=== PATIENT | female | born 1940 | race Caucasian/White ===

== ENCOUNTER 2016-04-19 08:35 | Outpatient (CLI) | payer MEDICARE, OTHER | END 2016-04-19 08:36 | disposition home or self-care (01) | DX: E11.9 Type 2 diabetes mellitus without complications (principal); E55.9 Vitamin D deficiency, unspecified; Z79.899 Other long term (current) drug therapy ==

== ENCOUNTER 2016-05-11 09:50 | Outpatient (CLI) | payer MEDICARE, OTHER | END 2016-05-11 09:51 | disposition home or self-care (01) | DX: N30.90 Cystitis, unspecified without hematuria (principal) ==

== ENCOUNTER 2016-09-27 10:29 | Outpatient (CLI) | payer MEDICARE, OTHER ==
[2016-09-27 18:00] LABS: BASOPHILS % (AUTO) 0.7 %; EOSINOPHILS # (AUTO) 0.1 10^3/uL (0.0-0.7); EOSINOPHILS % (AUTO) 2.4 %; HCT - HEMATOCRIT 43.8 % (37.0-47.0); HGB - HEMOGLOBIN 14.7 g/dL (12.0-16.0); LYMPHOCYTES # (AUTO) 1.5 10^3/uL (1.5-3.5); MEAN CORPUSCULAR HEMOGLOBIN 30.3 pg (27.0-31.0); MEAN CORPUSCULAR HGB CONC 33.4 g/dL (32.0-36.0); MEAN CORPUSCULAR VOLUME 90.7 fL (81.0-99.0); MEAN PLATELET VOLUME 9.1 fL (7.9-10.8); MONOCYTES # (AUTO) 0.3 10^3/uL (0.0-1.0); MONOCYTES % (AUTO) 6.2 %; NEUTROPHILS # (AUTO) 2.5 10^3/uL (1.5-6.6); NEUTROPHILS % (AUTO) 56.7 %; NUCLEATED RED BLOOD CELLS AUTO 0.2 /100WBC; RED BLOOD COUNT 4.83 10^6/uL (4.20-5.40); RED CELL DISTRIBUTION WIDTH 13.3 % (12.0-15.0); UNCORRECTED WHITE BLOOD COUNT 4.4 x10^3/uL; WHITE BLOOD COUNT 4.4 x10^3/uL (4.8-10.8)
[2016-09-27 18:09] LABS: ALBUMIN/GLOBULIN RATIO 1.4 (1.0-2.2); BILIRUBIN,TOTAL 1.1 mg/dL (0.2-1.0); BUN - BLOOD UREA NITROGEN 13 mg/dL (6-20); CALCIUM 9.2 mg/dL (8.5-10.3); CARBON DIOXIDE - CO2 24 mmol/L (21-32); CHLORIDE 107 mmol/L (101-111); CHOL/HDL RATIO 3.8 (<4.4); CHOLESTEROL 196 mg/dL; CREATININE 0.9 mg/dL (0.4-1.0); GFR - MDRD 61 (>89); GLUCOSE 123 mg/dL (70-100); HDL CHOLESTEROL 52 mg/dL; LDL/HDL RATIO 2.3 (<4.4); SODIUM 138 mmol/L (135-145); TOTAL PROTEIN 6.8 g/dL (6.7-8.2); TRIGLYCERIDES 134 mg/dL; VLDL CHOLESTEROL 27 mg/dL
[2016-09-27 18:32] LABS: HEMOGLOBIN A1C 0.58 g/dL
== END 2016-09-27 10:30 | disposition home or self-care (01) ==
LOC: LAB.F 10:29
PROVIDERS: ATTEND Physician Assistant Medical
DX: E11.9 Type 2 diabetes mellitus without complications (principal); E55.9 Vitamin D deficiency, unspecified; E78.2 Mixed hyperlipidemia; I49.3 Ventricular premature depolarization; Z79.899 Other long term (current) drug therapy
CPT/HCPCS: 36415; 80053; 80061; 82306; 83036; 84443; 85025

== ENCOUNTER 2016-10-24 14:25 | Outpatient (CLI) | payer MEDICARE, OTHER | END 2016-10-24 14:26 | disposition home or self-care (01) | LOC: LAB.R 14:25 | PROVIDERS: ATTEND Physician Assistant Medical | DX: N30.00 Acute cystitis without hematuria (principal) | CPT/HCPCS: 87086 ==

== ENCOUNTER 2017-03-07 08:00 | Outpatient (CLI) | payer MEDICARE, OTHER | END 2017-03-07 08:01 | disposition home or self-care (01) | LOC: LAB.R 08:00 | PROVIDERS: ATTEND Physician Assistant Medical | DX: N30.00 Acute cystitis without hematuria (principal) | CPT/HCPCS: 87077; 87086 ==

== ENCOUNTER 2017-03-15 08:30 | Outpatient (CLI) | payer MEDICARE, OTHER ==
--- NOTE | 2017-03-16 17:42 | Mammography Report ---
DATE OF SERVICE: 03/15/2017 EXAM: DIGITAL BILATERAL SCREENING MAMMOGRAM: 03/15/2017 CLINICAL INDICATION: A 76-year-old with history of benign biopsy, for screening. COMPARISON: 02/2016, 02/2015, 11/2013, 11/2012, 10/2011, 11/2010, 10/2010, 2009. TECHNIQUE: Routine CC and MLO projections were obtained of the breasts. FINDINGS: The breasts demonstrate scattered fibroglandular densities bilaterally. Postbiopsy changes in the right breast are stable. Coarse and punctate, typically benign calcifications are present. No suspicious masses, clustered microcalcifications, or regions of architectural distortion are identified. IMPRESSION: BENIGN FINDINGS. RECOMMENDATIONS: Routine annual screening unless otherwise clinically indicated. BIRADS CATEGORY 2-BENIGN FINDINGS. STANDARD QUALIFYING STATEMENTS: 1. This examination was reviewed with the aid of Computer-Aided Detection (CAD) . 2. A negative or benign imaging report should not delay biopsy if clinically suspicious findings are present. Consider surgical consultation if warranted. More than 5% of cancers are not identified by imaging. 3. Dense breasts may obscure an underlying neoplasm. TD: 03/16/2017 16:24 ABIGAIL
== END 2017-03-15 08:31 | disposition home or self-care (01) ==
LOC: DI.S 08:30
PROVIDERS: ATTEND Physician Assistant Medical
DX: Z12.31 Encounter for screening mammogram for malignant neoplasm of breast (principal)
CPT/HCPCS: 77067

== ENCOUNTER 2017-03-27 11:38 | Outpatient (CLI) | payer MEDICARE, OTHER ==
[2017-03-27 13:55] LABS: HB2 TOTAL 16.6 g/dL; HEMOGLOBIN A1C 0.61 g/dL; HEMOGLOBIN A1C % 5.5 % (4.6-6.2)
== END 2017-03-27 11:39 | disposition home or self-care (01) ==
LOC: LAB.R 11:38
PROVIDERS: ATTEND Physician Assistant Medical
DX: E11.9 Type 2 diabetes mellitus without complications (principal)
CPT/HCPCS: 82947; 83036

== ENCOUNTER 2017-04-23 11:55 | Outpatient (CLI) | payer MEDICARE, OTHER | END 2017-04-23 11:56 | disposition home or self-care (01) | LOC: LAB.R 11:55 | PROVIDERS: ATTEND Physician Assistant Medical | DX: N30.00 Acute cystitis without hematuria (principal) | CPT/HCPCS: 87086 ==

== ENCOUNTER 2017-09-24 08:00 | Outpatient (CLI) | payer MEDICARE, OTHER | END 2017-09-24 08:01 | LOC: LAB.R 08:00 | PROVIDERS: ATTEND Physician Assistant Medical | DX: N30.00 Acute cystitis without hematuria (principal) | CPT/HCPCS: 87086; 87181 ==

== ENCOUNTER 2017-10-30 11:05 | Outpatient (CLI) | payer MEDICARE, OTHER ==
[2017-10-30 17:49] LABS: BASOPHILS % (AUTO) 0.7 %; EOSINOPHILS # (AUTO) 0.1 10^3/uL (0.0-0.7); EOSINOPHILS % (AUTO) 2.3 %; HGB - HEMOGLOBIN 14.9 g/dL (12.0-16.0); LYMPHOCYTES # (AUTO) 1.3 10^3/uL (1.5-3.5); LYMPHOCYTES % (AUTO) 29.7 %; MEAN CORPUSCULAR HEMOGLOBIN 30.1 pg (27.0-31.0); MEAN CORPUSCULAR HGB CONC 33.7 g/dL (32.0-36.0); MEAN CORPUSCULAR VOLUME 89.3 fL (81.0-99.0); MEAN PLATELET VOLUME 9.3 fL (7.9-10.8); MONOCYTES # (AUTO) 0.3 10^3/uL (0.0-1.0); MONOCYTES % (AUTO) 6.2 %; NEUTROPHILS # (AUTO) 2.7 10^3/uL (1.5-6.6); NEUTROPHILS % (AUTO) 61.1 %; PLT - PLATELET COUNT 191 10^3/uL (130-450); RED BLOOD COUNT 4.93 10^6/uL (4.20-5.40); RED CELL DISTRIBUTION WIDTH 13.6 % (12.0-15.0); WHITE BLOOD COUNT 4.5 x10^3/uL (4.8-10.8)
[2017-10-30 18:17] LABS: ALBUMIN 3.7 g/dL (3.2-5.5); ALBUMIN/GLOBULIN RATIO 1.2 (1.0-2.2); ALKALINE PHOSPHATASE 66 IU/L (42-121); ALT ALANINE AMINOTRANSFERASE 14 IU/L (10-60); AST ASPARTATE AMINOTRANSFERASE 20 IU/L (10-42); BILIRUBIN,TOTAL 1.5 mg/dL (0.2-1.0); BUN - BLOOD UREA NITROGEN 12 mg/dL (6-20); CALCIUM 9.1 mg/dL (8.5-10.3); CARBON DIOXIDE - CO2 24 mmol/L (21-32); CHLORIDE 107 mmol/L (101-111); CHOL/HDL RATIO 3.7 (<4.4); CHOLESTEROL 215 mg/dL; CREATININE 0.8 mg/dL (0.4-1.0); GFR - MDRD 70 (>89); GLUCOSE 118 mg/dL (70-100); HDL CHOLESTEROL 58 mg/dL; LDL CHOLESTEROL,CALCULATED 127 mg/dL; LDL/HDL RATIO 2.2 (<4.4); SODIUM 138 mmol/L (135-145); TOTAL PROTEIN 6.9 g/dL (6.7-8.2); VLDL CHOLESTEROL 30 mg/dL
[2017-10-30 18:45] LABS: HB2 TOTAL 15.8 g/dL; HEMOGLOBIN A1C 0.66 g/dL
== END 2017-10-30 11:06 | disposition home or self-care (01) ==
LOC: LAB.F 11:05
PROVIDERS: ATTEND Physician Assistant Medical
DX: Z79.899 Other long term (current) drug therapy (principal); E55.9 Vitamin D deficiency, unspecified; E78.2 Mixed hyperlipidemia; E11.9 Type 2 diabetes mellitus without complications; I49.3 Ventricular premature depolarization; E66.3 Overweight
CPT/HCPCS: 36415; 80053; 80061; 82306; 83036; 83721; 84443; 85025

== ENCOUNTER 2018-04-09 08:15 | Outpatient (CLI) | payer MEDICARE, OTHER ==
--- NOTE | 2018-04-10 12:58 | Mammography Report ---
Reason: MAMMOGRAPHIC SCREENING FOR BREAST CANCER Procedure Date: 04/09/2018 Accession Number: [id number] / [id number] Procedure: [facility] - Screening Mammo w/Rosendo CPT Code: FULL RESULT: EXAM: Screening Mammo w/Rosendo DATE: 04/09/2018 9:06 AM CLINICAL HISTORY: History of benign biopsy for routine screening TECHNIQUE: Bilateral CC and MLO views were obtained. COMPARISON: 03/15/2017, 03/06/2016, 03/17/2015, 12/09/2013, and the 12/05/2012 FINDINGS: There are scattered fibroglandular densities. There has been no significant interval change on the left. No suspicious masses, clustered microcalcifications, or regions of architectural distortion are identified. Benign appearing calcifications are stable. On the right there is an area of architectural distortion in the 12:00 position approximately 4 cm from the nipple. This may represent postbiopsy architectural distortion given the patient's clinical history but it appears more prominent than on preceding studies. Otherwise no significant new findings right breast. IMPRESSION: Negative left breast. Needs additional evaluation of the right breast by spot compression and true lateral views and possible ultrasound. RECOMMENDATION: Additional imaging right breast. BIRADS CATEGORY 0: Needs additional evaluation STANDARD QUALIFYING STATEMENTS: 1. This examination was not reviewed with the aid of Computer-Aided Detection (CAD). 2. A negative or benign imaging report should not delay biopsy if clinically suspicious findings are present. Consider surgical consultation if warrented. More than 5% of cancers are not identified by imaging. 3. Dense breasts may obscure an underlying neoplasm. 4. This examination was reviewed with the aid of 3D breast imaging (tomosynthesis).
== END 2018-04-09 08:16 | disposition home or self-care (01) ==
LOC: DI 08:15
PROVIDERS: ATTEND Physician Assistant Medical
DX: Z12.31 Encounter for screening mammogram for malignant neoplasm of breast (principal)
CPT/HCPCS: 77063; 77067

== ENCOUNTER 2018-04-09 08:19 | Outpatient (CLI) | payer MEDICARE, OTHER ==
--- NOTE | 2018-04-09 10:31 | DEXA Report ---
Reason: POSTMENOPAUSAL Procedure Date: 04/09/2018 Accession Number: [id number] / [id number] Procedure: DEX - Dexa Spine and/or Hip CPT Code: FULL RESULT: EXAM: Dexa Spine and/or Hip DATE: 04/09/2018 9:08 AM CLINICAL HISTORY: POSTMENOPAUSAL TECHNIQUE: Dual energy x-ray absorptiometry (DXA) was performed on a ttwick System. Regions measured are the AP Spine, femoral neck, and if needed forearm. COMPARISON: 05/10/2011. In accordance with the International Society for Clinical Densitometry (ISCD) guidelines, data from previous exams may be reanalyzed using current recommendations and techniques. This is done to allow a more accurate basis for comparison with the current study. FINDINGS: The data for the lumbar spine is as follows: BMD (g/cm/cm) T-SCORE Z-SCORE REGION L1 1.058 -0.6 0.6 L2 1.129 -0.6 0.6 L3 1.236 0.3 1.5 L4 1.295 0.8 2.0 TOTAL 1.191 0.1 1.3 NOTE: All evaluable vertebrae are used for classification The data for the hip is as follows: BMD (g/cm/cm) T-SCORE Z-SCORE REGION Neck 0.842 -1.4 0.2 TOTAL 0.864 -1.1 0.3 NOTE: The femoral neck or total proximal femur, whichever is lowest, is used for classification. IMPRESSION: THE WHO CLASSIFICATION BASED ON THE INTERNATIONAL REFERENCE STANDARD IS OSTEOPENIA. THE FRACTURE RISK IS INCREASED. RECOMMENDATION: Patients with diagnosis of osteoporosis or osteopenia should have regular bone mineral density assessment. For those eligible for Medicare, routine testing is allowed once every 2 years. Testing frequency can be increased for patients who have rapidly progressing disease or for those who are receiving medical therapy to restore bone mass. COMMENT: World Health Organization (WHO) definitions for osteoporosis and osteopenia: NORMAL BMD: T-score at -1.0 or higher, fracture risk is low OSTEOPENIA BMD: T-score between -1.0 and -2.5, fracture risk is increased. OSTEOPOROSIS BMD: T-score at -2.5 or lower, fracture risk is high. National Osteoporosis Foundation recommends: 1. Obtain adequate dietary calcium (at least 1200 mg per day) and vitamin D (400-800 international units per day). 2. Participate, as appropriate, in regular weightbearing and muscle-strengthening exercise. 3. Avoid tobacco use and reduce alcohol and caffeine intake. 4. For more detailed information see the website at www.NOF.org.
== END 2018-04-09 08:20 | disposition home or self-care (01) ==
LOC: DI 08:19
PROVIDERS: ATTEND Physician Assistant Medical
DX: M85.89 Other specified disorders of bone density and structure, multiple sites (principal); Z78.0 Asymptomatic menopausal state
CPT/HCPCS: 77080

== ENCOUNTER 2018-04-10 10:30 | Outpatient (CLI) | payer MEDICARE, OTHER ==
[2018-04-10 18:22] LABS: HB2 TOTAL 15.7 g/dL; HEMOGLOBIN A1C 0.79 g/dL; HEMOGLOBIN A1C % 6.8 % (4.6-6.2)
[2018-04-10 18:27] LABS: ALBUMIN/GLOBULIN RATIO 1.3 (1.0-2.2); BILIRUBIN,TOTAL 1.2 mg/dL (0.2-1.0); CALCIUM 8.9 mg/dL (8.5-10.3); CREATININE 0.7 mg/dL (0.4-1.0)
== END 2018-04-10 10:31 | disposition home or self-care (01) ==
LOC: LAB.F 10:30
PROVIDERS: ATTEND Physician Assistant Medical
DX: E55.9 Vitamin D deficiency, unspecified (principal); Z79.899 Other long term (current) drug therapy; E11.9 Type 2 diabetes mellitus without complications
CPT/HCPCS: 36415; 80053; 82306; 83036

== ENCOUNTER 2018-04-19 08:43 | Outpatient (CLI) | payer MEDICARE, OTHER ==
--- NOTE | 2018-04-19 09:58 | Mammography Report ---
Reason: ABN MAMMO - RT SPEC VIEWS Procedure Date: 04/19/2018 Accession Number: [id number] / [id number] Procedure: [facility] - Diag Special Views Dig RT CPT Code: FULL RESULT: EXAM: Diag Special Views Dig RT DATE: 04/19/2018 9:41 AM CLINICAL HISTORY: Diagnostic mammogram. Follow-up of an identified architectural distortion of the right breast. TECHNIQUE: Right spot CC and spot magnified MLO views as well as a right ML views were obtained. COMPARISON: 04/09/2018 through 12/05/2012. FINDINGS: The right breast demonstrates scattered fibroglandular density. The previously seen interval increase in architectural distortion in an area of presumed previous biopsy of the right breast in the 12:00 position is demonstrated to be the result of tissue overlap which resolves with variation in technique and spot compression. No suspicious calcification, mass or architectural distortion is identified. IMPRESSION: Benign findings RECOMMENDATION: Recommend routine annual Screening mammography unless otherwise clinically indicated. BIRADS CATEGORY 2: Benign findings STANDARD QUALIFYING STATEMENTS: 1. This examination was not reviewed with the aid of Computer-Aided Detection (CAD). 2. A negative or benign imaging report should not delay biopsy if clinically suspicious findings are present. Consider surgical consultation if warrented. More than 5% of cancers are not identified by imaging. 3. Dense breasts may obscure an underlying neoplasm. 4. This examination was reviewed with the aid of 3D imaging (tomography).
== END 2018-04-19 08:44 | disposition home or self-care (01) ==
LOC: DI 08:43
PROVIDERS: ATTEND Physician Assistant Medical
DX: R92.8 Other abnormal and inconclusive findings on diagnostic imaging of breast (principal)

== ENCOUNTER 2018-07-25 14:24 | Emergency (ER) | payer MEDICARE, OTHER ==
[2018-07-25] MEDS ORDERED: IBUPROFEN 800 MG TABLET PO STA (15:18)
--- NOTE | 2018-07-25 15:21 | ED Physician Documentation ---
PD HPI Fall - Stated complaint Stated Complaint: GLF - Chief complaint Chief Complaint: Trauma Ch/Bk - History obtained from History obtained from: Patient, Family - History of Present Illness Mechanism of injury: Slipped Fall distance: Standing position Where injury occurred: Street Timing - onset: How many hours ago (2) Injury(ies) location: Chest (R chest and R shoulder) Pain level max: 7 Pain level now: 5 Quality of pain: Pain, Throbbing, Aching Associated symptoms: No: LOC, AMS, Amnesia, Seizures, Ear drainage, Nasal drainage, Neck pain, Weakness, Paresthesias, Dyspnea, Nausea / vomiting, Hem atemesis, Abdominal distension Symptoms improve with: Rest Worsens with: Movement, Palpation Contributing factors: No: Anticoagulated - Additional information Additional information: td UTD Review of Systems Constitutional: denies: Fever Respiratory: denies: Cough GI: denies: Nausea, Vomiting, Diarrhea Skin: denies: Rash Musculoskeletal: denies: Neck pain, Back pain Neurologic: denies: Focal weakness, Numbness, Confused, Altered mental status, Headache, Head injury, LOC PD PAST MEDICAL HISTORY - Past Medical History Past Medical History: No Cardiovascular: None Respiratory: None Neuro: None Endocrine/Autoimmune: Type 2 diabetes GI: None MANAGER PUBLISHING: None : None HEENT: None Psych: None Musculoskeletal: Osteoarthritis Derm: None - Past Surgical History Past Surgical History: Yes Ortho: Hip replacement /MANAGER PUBLISHING: Hysterectomy HEENT: Other - Allergies Allergies/Adverse Reactions: Allergies Allergy/AdvReac Type Severity Reaction Status Date / Time meperidine HCl * Allergy Unknown Verified 07/25/18 14:39 [From Demerol] - Social History Does the pt smoke?: No Smoking Status: Never smoker Does the pt drink ETOH?: Yes Does the pt have substance abuse?: No - Immunizations Immunizations are current?: Yes - POLST Patient has POLST: No PD ED PE NORMAL - Vitals Vital signs reviewed: Yes - General General: Alert and oriented X 3, No acute distress - HEENT HEENT: Atraumatic, PERRL, Moist mucous membranes - Neck Neck: Supple, no meningeal sign, No bony TTP - Cardiac Cardiac: RRR, Strong equal pulses - Respiratory Respiratory: No respiratory distress, Clear bilaterally - Abdomen Abdomen: Soft, Non tender, Non distended - Back Back: No spinal TTP - Derm Derm: Warm and dry, Other (abrasion R knee) - Extremities Extremities: Other (normal ankle and knee exam B) - Neuro Neuro: Alert and oriented X 3 - Psych Psych: Normal mood, Normal affect - Free text exam Free text exam: TTP R shoulder, no deformity. FROM. NVI. TTP mid axillary line ribs 5-8 no crepitus. no ecchymosis. Results - Vitals Vitals: Vital Signs - 24 hr 07/25/18 07/25/18 07/25/18 14:35 16:32 17:25 Temperature 36.2 C L 35.9 C L 36.2 C L Heart Rate 64 65 66 Respiratory 18 18 18 Rate Blood Pressure 157/75 H 150/77 H 148/78 H O2 Saturation 98 96 96 Oxygen O2 Source Room air - Rads (name of study) R ribs xray Radiology: Prelim report reviewed, EMP read contemporaneously, See rad report (no acute fractures) R shoulder Radiology: Prelim report reviewed, EMP read contemporaneously, See rad report (no acute abnormality) PD MEDICAL DECISION MAKING - ED course Complexity details: reviewed results, re-evaluated patient, considered differential, d/w patient, d/w family ED course: 78-year-old female that is post ground-level fall. No acute findings on x-ray. No evidence of cervical spine, thoracic spine or lumbar spine injury. No head injury. No evidence of skull fracture or intracranial hemorrhage. Ambulating well. Tetanus is up-to-date. Patient counseled regarding signs and symptoms for which I believe and urgent re-evaluation would be necessary. Patient with good understanding of and agreement to plan and is comfortable going home at this time This document was made in part using voice recognition software. While efforts are made to proofread this document, sound alike and grammatical errors may occur. Departure - Departure Disposition: 01 Home, Self Care Clinical Impression: Abrasion Contusion of shoulder, right Qualifiers: Encounter type: initial encounter Qualified Code(s): S40.011A - Contusion of right shoulder, initial encounter Contusion of rib on right side Qualifiers: Encounter type: initial encounter Qualified Code(s): S20.211A - Contusion of right front wall of thorax, initial encounter Condition: Good Instructions: ED Contusion Soft Tissue, ED Contusion Rib Follow-Up: Juan Carlos Alberto MD [Primary Care Provider] - Within 1 week Comments: There are no fractures on x-ray today. Return if you worsen. Follow-up with your doctor for further evaluation and care. You can use Motrin or Tylenol as needed for pain. Discharge Date/Time: 07/25/18 17:29
--- NOTE | 2018-07-25 16:43 | XRAY Report ---
Reason: fall, R shoulder pain Procedure Date: 07/25/2018 Accession Number: [id number] / [id number] Procedure: XR - Shoulder 3 View RT CPT Code: FULL RESULT: EXAM: RIGHT SHOULDER RADIOGRAPHY EXAM DATE: 07/25/2018 04:05 PM. CLINICAL HISTORY: Fall with pain in right shoulder. COMPARISON: None. TECHNIQUE: 3 views. FINDINGS: Bones: Normal. No fracture or bone lesion. Joints: Mild degenerative changes in the acromioclavicular joint. Soft tissues: The visualized hemithorax is unremarkable. No soft tissue swelling. IMPRESSION: 1. No fracture. 2. Mild degenerative changes in the acromioclavicular joint. RADIA
--- NOTE | 2018-07-25 16:45 | XRAY Report ---
Reason: fall, R rib pain Procedure Date: 07/25/2018 Accession Number: [id number] / [id number] Procedure: XR - Ribs w/PA Chest RT CPT Code: FULL RESULT: EXAM: RIGHT RIB RADIOGRAPHY EXAM DATE: 07/25/2018 04:05 PM. CLINICAL HISTORY: Right sided and right shoulder pain status post fall COMPARISON: None. TECHNIQUE: 1 view of the chest and 2 views of the ribs. FINDINGS: Bones: Normal. No fracture or bone lesion. Lungs: No focal opacities. No pneumothorax. No pleural effusions. Mediastinum: Heart and mediastinal contours are unremarkable. Other: Mild degenerative changes in the right acromioclavicular joint and moderate to severe degenerative changes in the left acromioclavicular joint. IMPRESSION: 1. No focal consolidation. 2. No rib fractures identified. 3. Mild degenerative changes in the right acromioclavicular joint and moderate to severe degenerative changes in the left acromioclavicular joint. RADIA
[2018-07-25 17:26] VITALS: BP 148/78
== END 2018-07-25 17:29 | disposition home or self-care (01) ==
LOC: ED 14:24
DX: S80.211A Abrasion, right knee, initial encounter (principal); S40.011A Contusion of right shoulder, initial encounter; S20.211A Contusion of right front wall of thorax, initial encounter; W01.0XXA Fall on same level from slipping, tripping and stumbling without subsequent striking against object, initial encounter; Y92.410 Unspecified street and highway as the place of occurrence of the external cause; E11.9 Type 2 diabetes mellitus without complications
CPT/HCPCS: 71101; 73030; 99283; 99284; A9270

== ENCOUNTER 2018-09-03 13:43 | Outpatient (CLI) | payer MEDICARE, OTHER ==
--- NOTE | 2018-09-03 14:14 | XRAY Report ---
Reason: HIP JOINT PAIN,RIGHT Procedure Date: 09/03/2018 Accession Number: [id number] / [id number] Procedure: XR - Hip w/Pelvis 2-3V RT CPT Code: FULL RESULT: EXAM: RIGHT HIP RADIOGRAPHY EXAM DATE: 09/03/2018 01:50 PM. CLINICAL HISTORY: Right hip pain. Recent fall. COMPARISON: XR HIP UNI LAT MIN 2 VIEW 02/21/2012 5:12 PM. TECHNIQUE: 2 views. FINDINGS: Bones: Negative for fracture Joints: Mild to moderate right hip joint osteoarthritis. Partial visualization of a left hip arthroplasty. Unremarkable sacroiliac joints. Soft Tissues: Normal. No soft tissue swelling. IMPRESSION: Negative for fracture. RADIA
== END 2018-09-03 13:44 | disposition home or self-care (01) ==
LOC: DI 13:43
PROVIDERS: ATTEND Nurse Practitioner
DX: M16.11 Unilateral primary osteoarthritis, right hip (principal)

== ENCOUNTER 2018-10-10 08:00 | Outpatient (CLI) | payer MEDICARE, OTHER | END 2018-10-10 23:59 | disposition home or self-care (01) | LOC: LAB.R 08:00 | PROVIDERS: ATTEND Family Medicine | DX: Z87.440 Personal history of urinary (tract) infections (principal); N39.0 Urinary tract infection, site not specified | CPT/HCPCS: 87086 ==

== ENCOUNTER 2018-12-05 11:00 | Outpatient (CLI) | payer MEDICARE, OTHER ==
[2018-12-05 17:12] LABS: BASOPHILS % (AUTO) 0.6 %; EOSINOPHILS # (AUTO) 0.1 10^3/uL (0.0-0.7); EOSINOPHILS % (AUTO) 2.5 %; HGB - HEMOGLOBIN 14.9 g/dL (12.0-16.0); LYMPHOCYTES # (AUTO) 1.3 10^3/uL (1.5-3.5); LYMPHOCYTES % (AUTO) 36.9 %; MEAN CORPUSCULAR HEMOGLOBIN 29.5 pg (27.0-31.0); MEAN CORPUSCULAR HGB CONC 32.8 g/dL (32.0-36.0); MEAN CORPUSCULAR VOLUME 89.9 fL (81.0-99.0); MEAN PLATELET VOLUME 11.4 fL (7.9-10.8); MONOCYTES # (AUTO) 0.3 10^3/uL (0.0-1.0); MONOCYTES % (AUTO) 8.1 %; NEUTROPHILS # (AUTO) 1.9 10^3/uL (1.5-6.6); NEUTROPHILS % (AUTO) 51.9 %; PLT - PLATELET COUNT 199 10^3/uL (130-450); RED BLOOD COUNT 5.05 10^6/uL (4.20-5.40); RED CELL DISTRIBUTION WIDTH 13.4 % (12.0-15.0); WHITE BLOOD COUNT 3.6 x10^3/uL (4.8-10.8)
[2018-12-05 17:40] LABS: HB2 TOTAL 15.8 g/dL; HEMOGLOBIN A1C 0.62 g/dL; HEMOGLOBIN A1C % 5.7 % (4.6-6.2)
[2018-12-05 17:50] LABS: ALBUMIN 4.3 g/dL (3.2-5.5); ALBUMIN/GLOBULIN RATIO 1.8 (1.0-2.2); ALKALINE PHOSPHATASE 57 IU/L (42-121); ALT ALANINE AMINOTRANSFERASE 23 IU/L (10-60); AST ASPARTATE AMINOTRANSFERASE 22 IU/L (10-42); BILIRUBIN,TOTAL 1.3 mg/dL (0.2-1.0); BUN - BLOOD UREA NITROGEN 15 mg/dL (6-20); CALCIUM 9.1 mg/dL (8.5-10.3); CARBON DIOXIDE - CO2 25 mmol/L (21-32); CHLORIDE 108 mmol/L (101-111); CHOL/HDL RATIO 4.6 (<4.4); CHOLESTEROL 214 mg/dL; CREATININE 0.8 mg/dL (0.4-1.0); GFR - MDRD 69 (>89); GLUCOSE 110 mg/dL (70-100); HDL CHOLESTEROL 47 mg/dL; LDL CHOLESTEROL,CALCULATED 147 mg/dL; LDL/HDL RATIO 3.1 (<4.4); SODIUM 140 mmol/L (135-145); TOTAL PROTEIN 6.7 g/dL (6.7-8.2); VLDL CHOLESTEROL 20 mg/dL
== END 2018-12-05 11:01 | disposition home or self-care (01) ==
LOC: LAB.S 11:00
PROVIDERS: ATTEND Nurse Practitioner
DX: R03.0 Elevated blood-pressure reading, without diagnosis of hypertension (principal); N18.9 Chronic kidney disease, unspecified; E55.9 Vitamin D deficiency, unspecified; E78.2 Mixed hyperlipidemia; E11.9 Type 2 diabetes mellitus without complications; Z79.899 Other long term (current) drug therapy
CPT/HCPCS: 36415; 80053; 80061; 82306; 83036; 83721; 84443; 85025

== ENCOUNTER 2019-09-20 09:59 | Outpatient (CLI) | payer MEDICARE, OTHER | END 2019-09-20 23:59 | disposition home or self-care (01) | LOC: LAB.R 09:59 | PROVIDERS: ATTEND Physician Assistant | DX: N30.00 Acute cystitis without hematuria (principal); R30.0 Dysuria | CPT/HCPCS: 87086 ==

== ENCOUNTER 2020-02-11 12:29 | Outpatient (CLI) | payer MEDICARE, OTHER ==
--- NOTE | 2020-02-11 14:15 | XRAY Report ---
PROCEDURE: Shoulder 3 View LT INDICATIONS: LEFT SHOULDER PAIN TECHNIQUE: 3 views of the shoulder were acquired. COMPARISON: None. FINDINGS: Bones: No fractures or dislocations. No suspicious bony lesions. Visualized ribs appear intact. S evere acromioclavicular degenerative narrowing. Soft tissues: No suspicious soft tissue calcifications. Prominent calcific tendinitis. IMPRESSION: Acromial clavicular degenerative narrowing as well as calcific tendinitis. Reviewed by: Jie Haley MD on 02/11/2020 2:14 PM PST Approved by: Jie Haley MD on 02/11/2020 2:14 PM PST Station ID: [id number]
== END 2020-02-11 12:30 | disposition home or self-care (01) ==
LOC: DI.S 12:29
PROVIDERS: ATTEND Family Medicine
DX: M19.012 Primary osteoarthritis, left shoulder (principal)

== ENCOUNTER 2020-02-13 07:03 | Outpatient (CLI) | payer MEDICARE, OTHER ==
[2020-02-13 15:10] LABS: BASOPHILS % (AUTO) 0.5 %; EOSINOPHILS # (AUTO) 0.1 10^3/uL (0.0-0.7); EOSINOPHILS % (AUTO) 1.6 %; HGB - HEMOGLOBIN 14.9 g/dL (12.0-16.0); LYMPHOCYTES # (AUTO) 1.5 10^3/uL (1.5-3.5); LYMPHOCYTES % (AUTO) 35.5 %; MEAN CORPUSCULAR HEMOGLOBIN 30.8 pg (27.0-31.0); MEAN CORPUSCULAR HGB CONC 33.4 g/dL (32.0-36.0); MEAN CORPUSCULAR VOLUME 92.3 fL (81.0-99.0); MEAN PLATELET VOLUME 10.9 fL (7.9-10.8); MONOCYTES # (AUTO) 0.3 10^3/uL (0.0-1.0); MONOCYTES % (AUTO) 6.8 %; NEUTROPHILS # (AUTO) 2.4 10^3/uL (1.5-6.6); NEUTROPHILS % (AUTO) 55.6 %; PLT - PLATELET COUNT 222 10^3/uL (130-450); RED BLOOD COUNT 4.83 10^6/uL (4.20-5.40); RED CELL DISTRIBUTION WIDTH 12.6 % (12.0-15.0); WHITE BLOOD COUNT 4.3 x10^3/uL (4.8-10.8)
[2020-02-13 15:24] LABS: ALBUMIN 4.1 g/dL (3.2-5.5); ALBUMIN/GLOBULIN RATIO 1.5 (1.0-2.2); ALKALINE PHOSPHATASE 65 IU/L (42-121); ALT ALANINE AMINOTRANSFERASE 14 IU/L (10-60); AST ASPARTATE AMINOTRANSFERASE 17 IU/L (10-42); BILIRUBIN,TOTAL 1.5 mg/dL (0.2-1.0); BUN - BLOOD UREA NITROGEN 14 mg/dL (6-20); CALCIUM 9.8 mg/dL (8.5-10.3); CARBON DIOXIDE - CO2 24 mmol/L (21-32); CHLORIDE 105 mmol/L (101-111); CHOL/HDL RATIO 3.4 (<4.4); CHOLESTEROL 208 mg/dL; CREATININE 0.7 mg/dL (0.4-1.0); GLUCOSE 114 mg/dL (70-100); HDL CHOLESTEROL 62 mg/dL; LDL CHOLESTEROL,CALCULATED 119 mg/dL; LDL/HDL RATIO 1.9 (<4.4); SODIUM 143 mmol/L (135-145); TOTAL PROTEIN 6.8 g/dL (6.7-8.2); VLDL CHOLESTEROL 27 mg/dL
[2020-02-13 20:14] LABS: HEMOGLOBIN A1c% 5.2 % (4.27-6.07)
== END 2020-02-13 07:04 | disposition home or self-care (01) ==
LOC: LAB.S 07:03
PROVIDERS: ATTEND Family Medicine
DX: Z00.00 Encounter for general adult medical examination without abnormal findings (principal); E55.9 Vitamin D deficiency, unspecified; N18.9 Chronic kidney disease, unspecified; R03.0 Elevated blood-pressure reading, without diagnosis of hypertension; E78.2 Mixed hyperlipidemia; E11.22 Type 2 diabetes mellitus with diabetic chronic kidney disease
CPT/HCPCS: 36415; 80053; 80061; 82306; 83036; 83721; 84443; 85025

== ENCOUNTER 2020-09-02 16:11 | Outpatient (CLI) | payer MEDICARE, OTHER | END 2020-09-02 16:12 | disposition home or self-care (01) | LOC: COV 16:11 | PROVIDERS: ATTEND Family Medicine | DX: R50.9 Fever, unspecified (principal); R05 Cough; M79.10 Myalgia, unspecified site; R53.83 Other fatigue; R07.0 Pain in throat; R43.8 Other disturbances of smell and taste; J34.89 Other specified disorders of nose and nasal sinuses; Z20.822 Contact with and (suspected) exposure to COVID-19 ==

== ENCOUNTER 2020-12-15 08:00 | Outpatient (CLI) | payer MEDICARE, OTHER | END 2020-12-15 23:59 | disposition home or self-care (01) | LOC: LAB.S 08:00 | PROVIDERS: ATTEND Physician Assistant Medical | DX: R30.0 Dysuria (principal) | CPT/HCPCS: 87086; 87181 ==

== ENCOUNTER 2021-04-26 10:45 | Outpatient (CLI) | payer MEDICARE, OTHER ==
--- NOTE | 2021-04-27 10:17 | Mammography Report ---
BILATERAL DIGITAL SCREENING MAMMOGRAM 3D/2D WITH EXAGGERATED CC: 04/26/2021 CLINICAL: Family history of breast cancer. Routine screening. Comparison is made to exams dated: 04/19/2018 mammogram, 04/09/2018 mammogram, and 03/15/2017 mammogra m - [facility]. There are scattered fibroglandular elements in both breasts. No significant masses, calcifications, or other findings are seen in either breast. There has been no significant interval change. IMPRESSION: NEGATIVE There is no mammographic evidence of malignancy. A 1 year screening mammogram is recommended. This exam was interpreted at Station ID: [id number]. NOTE: For mammograms, a report in lay terms will be sent to the patient. Approximately 15% of breast malignancies will not be visualized mammographically. In the management of a palpable breast mass, a negative mammogram must not discourage biopsy of a clinically suspicious lesion. Electronically Signed By: Ronak Dejesus M.D. ar/penrad:04/26/2021 12:57:46 ACR BI-RADS Category 1: Negative 3341F PARENCHYMAL PATTERN: (A) - The breast(s) demonstrate(s) scattered fibroglandular densities. BI-RADS CATEGORY: (1) - 1 RECOMMENDATION: (ANNUAL) - Recommend routine annual screening mammography. [id number] 1 year screening LATERALITY: (B)
== END 2021-04-26 10:46 | disposition home or self-care (01) ==
LOC: DI.S 10:45
DX: Z12.31 Encounter for screening mammogram for malignant neoplasm of breast (principal); Z80.3 Family history of malignant neoplasm of breast

== ENCOUNTER 2021-06-03 08:00 | Outpatient (CLI) | payer MEDICARE, OTHER ==
[2021-06-03 20:00] LABS: BILIRUBIN,URINE NEGATIVE (NEGATIVE); GLUCOSE, URINE (UA) NEGATIVE (NEGATIVE); KETONES,URINE (UA) NEGATIVE (NEGATIVE); LEUKOCYTE ESTERASE, URINE SMALL (NEGATIVE); NITRITE,URINE NEGATIVE (NEGATIVE); OCCULT BLOOD,URINE LARGE (NEGATIVE); PROTEIN,URINE NEGATIVE (NEGATIVE); UROBILINOGEN,URINE 0.2 (NORMAL) E.U./dL (NORMAL)
[2021-06-03 20:03] LABS: CLARITY,URINE HAZY (CLEAR)
[2021-06-03 20:15] LABS: AMORPHOUS SEDIMENT,UR Few /LPF; BACTERIA,URINE Rare /HPF (None Seen); SQUAMOUS EPITHELIAL CELL,UR RARE Squamous (<= Few); WBC,URINE >25 /HPF (0-5)
== END 2021-06-03 23:59 | disposition home or self-care (01) ==
LOC: LAB.S 08:00
PROVIDERS: ATTEND Registered Nurse
DX: N39.0 Urinary tract infection, site not specified (principal)
CPT/HCPCS: 81001; 87086

== ENCOUNTER 2021-06-17 08:00 | Outpatient (CLI) | payer MEDICARE, OTHER ==
[2021-06-17 14:43] LABS: GLUCOSE, URINE (UA) NEGATIVE (NEGATIVE); KETONES,URINE (UA) NEGATIVE (NEGATIVE); LEUKOCYTE ESTERASE, URINE MODERATE (NEGATIVE); NITRITE,URINE POSITIVE (NEGATIVE); OCCULT BLOOD,URINE LARGE (NEGATIVE); PH,URINE 5.5 PH (5.0-7.5); PROTEIN,URINE 100 mg/dL (NEGATIVE); UROBILINOGEN,URINE 0.2 (NORMAL) E.U./dL (NORMAL)
[2021-06-17 14:50] LABS: BILIRUBIN,URINE NEGATIVE (NEGATIVE); CLARITY,URINE SL. CLOUDY (CLEAR); ICTOTEST,URINE NEGATIVE
[2021-06-17 15:10] LABS: RBC,URINE TNTC /HPF (0-5); SQUAMOUS EPITHELIAL CELL,UR RARE Squamous (<= Few); WBC,URINE >25 /HPF (0-5)
[2021-06-17 15:11] LABS: BACTERIA,URINE Rare /HPF (None Seen)
== END 2021-06-17 23:59 | disposition home or self-care (01) ==
LOC: LAB.R 08:00
PROVIDERS: ATTEND Registered Nurse
DX: N39.0 Urinary tract infection, site not specified (principal)
CPT/HCPCS: 81001; 87086; 87181

== ENCOUNTER 2021-10-18 15:17 | Outpatient (CLI) | payer MEDICARE, OTHER ==
--- NOTE | 2021-10-19 09:25 | MRI Report ---
PROCEDURE: Lumbar Spine W/O INDICATIONS: LUMBAR RADICULOPATHY TECHNIQUE: Noncontrast sagittal T1 spin echo and T2 fast echo, sagittal STIR, axial T1 and T2 fast spin echo thr ough the lumbar spine. In cases with scoliosis, additional coronal T2 fast spin echo may be performe d. COMPARISON: None. FINDINGS: Image quality: Excellent. Alignment and Curvature: There is a transitional lumbosacral vertebral body which would be labeled as L5. Trace retrolisthesis of L1 on L2, trace anterolisthesis of L3 on L4, 7 mm anterolisthesis of L4 on L5. Bone Marrow: Marrow is of normal overall signal. No acute vertebral body compression fractures. Spinal Cord: Conus medullaris terminates at the L1 level. Visualized cord demonstrates normal signa l and size. Paraspinous Soft Tissues: No paravertebral masses. T11-T12: Disc bulge. No canal stenosis or foraminal stenosis. T12-L1: No canal stenosis or foraminal stenosis. L1-L2: Diffuse disc bulge. Facet hypertrophy. Epidural lipomatosis. Mild canal stenosis. Mild to m oderate right foraminal stenosis and moderate left foraminal stenosis. L2-L3: Disc bulge. Prominent bilateral facet hypertrophy. A anteromedially directed facet joint cy st off the left facet contributes to severe central canal stenosis. Stenosis is worse to the left mid line. There is moderate bilateral foraminal narrowing with flattening deformity on the exiting bilateral L2 nerve roots. L3-L4: Disc bulge. Quite prominent facet and ligament hypertrophy. Severe central canal and bilater al lateral recess stenosis. Bilateral foraminal disc bulges and facet hypertrophy results in bilatera l moderate to severe foraminal narrowing with impingement on the bilateral exiting L3 nerve roots. L4-L5: Anterolisthesis of L4 on L5. Marked facet hypertrophy. Severe central canal stenosis and mar ked bilateral lateral recess stenosis. Moderate to severe right foraminal narrowing with flattening d eformity on the exiting right L4 nerve root. Moderate left foraminal narrowing. L5-S1: Disc bulge. Prominent bilateral facet hypertrophy. No canal stenosis. Foramina are patent. IMPRESSION: 1. There is a transitional lumbosacral vertebral body, which is labeled as L5 for the purposes of thi s dictation. If surgery is planned, careful correlation for correct surgical level is recommended. 2. There is extensive degenerative change with multilevel facet arthropathy. 3. Canal stenosis is severe at L2-L3, L3-L4, and L4-L5, as described above. 4. Multilevel foraminal narrowing as described above. At L3-L4, there is impingement on the bilateral exiting L3 nerve roots. Reviewed by: Sergio Nj MD on 10/19/2021 9:23 AM PDT Approved by: Sergio Nj MD on 10/19/2021 9:23 AM PDT Station ID: [id number]
== END 2021-10-18 15:18 | disposition home or self-care (01) ==
LOC: DI 15:17
PROVIDERS: ATTEND Emergency Medicine
DX: M47.26 Other spondylosis with radiculopathy, lumbar region (principal); M47.817 Spondylosis without myelopathy or radiculopathy, lumbosacral region; M48.061 Spinal stenosis, lumbar region without neurogenic claudication

== ENCOUNTER 2022-05-04 11:57 | Outpatient (CLI) | payer MEDICARE, OTHER | END 2022-05-04 23:59 | disposition critical access hospital (66) | LOC: EMS 11:57 | DX: R55 Syncope and collapse (principal); R42 Dizziness and giddiness; I10 Essential (primary) hypertension; R11.0 Nausea | CPT/HCPCS: A0425; A0429 ==

== ENCOUNTER 2022-05-04 12:38 | Emergency (ER) | payer MEDICARE, OTHER ==
--- NOTE | 2022-05-04 13:05 | ED Physician Documentation ---
History of Present Illness - Stated complaint Stated Complaint: DIZZY/NAUSEA - Chief complaint Chief Complaint: Neuro - Additonal information Additional information: History obtained from patient. Jose Daniel historian at this time given that she feels very weak and unwell. 81-year-old female presents emergency department via EMS for evaluation of weakness and dizziness. Patient moans through much of the HPI. States that she woke up and just feels so poor and weak. She has had to use her walker this morning to get out of bed. She states that she feels like she is going to faint but is not sure that she will. She does not have chest pain but thinks that she might be somewhat short of breath. She is nauseated but has had no vomiting. Denies abdominal pain or urinary symptoms. On patient denies taking any prescribed medications. States that she is a diabetic however is not on any medications and reports that her last A1c was normal therefore her provider told her she did not need to take anything. Review of Systems Constitutional: denies: Fever, Chills Eyes: reports: Reviewed and negative Throat: reports: Reviewed and negative Cardiac: reports: Reviewed and negative Respiratory: reports: Reviewed and negative Neurologic: reports: Generalized weakness PD PAST MEDICAL HISTORY - Past Medical History Cardiovascular: None Respiratory: None Neuro: None Endocrine/Autoimmune: Type 2 diabetes GI: None METAL CAN INSPECTOR: None : None HEENT: None Psych: None Musculoskeletal: Osteoarthritis Derm: None - Past Surgical History Past Surgical History: Yes Ortho: Hip replacement /METAL CAN INSPECTOR: Hysterectomy HEENT: Other - Allergies Allergies/Adverse Reactions: Allergies Allergy/AdvReac Type Severity Reaction Status Date / Time meperidine HCl * Allergy Unknown Verified 05/04/22 12:51 [From Demerol] - Social History Does the pt smoke?: No Smoking Status: Never smoker Does the pt drink ETOH?: Yes Does the pt have substance abuse?: No - Immunizations Immunizations are current?: Yes - POLST Patient has POLST: No PD ED PE EXPANDED - General General: Other (moaning; reports feeling weak and dizzy) - HEENT HEENT: PERRL, EOMI (no nustagmus elicited) - Cardiac Cardiac: Regular Rate, Radial strong equal, Cap refill < 2 sec. No: Murmur Present - Respiratory Respiratory: Clear to ausultation nicky. No: Distress, Labored - Abdomen Abdomen: Normal Bowel sounds. No: Tender to palpation - Derm Derm: Normal color, Warm and dry. No: Rash - Extremities Extremities: Normal - Neuro Neuro: Alert and Oriented X 3, CNII-XII intact, Normal speech - GCS Eye Opening: Spontaneous Motor: Obeys Commands Verbal: Oriented Total: 15 Results - Vitals Vitals: Vital Signs - 24 hr 05/04/22 05/04/22 05/04/22 12:49 13:03 14:51 Temperature 36.4 C L Heart Rate 71 75 Heart Rate [ 71 Sitting] Heart Rate [ 79 Standing] Heart Rate [ 66 Supine] Respiratory 19 16 Rate Blood Pressure 200/95 H 168/70 H Blood Pressure 193/78 H [Sitting] Blood Pressure 197/85 H [Standing] Blood Pressure 169/83 H [Supine] O2 Saturation 100 100 Oxygen O2 Source Room air - EKG (time done) 1332 Rate: Rate (enter#) (69) Rhythm: NSR [place]: Normal Intervals: Normal [place] QRS: Normal Ischemia: Normal ST segments Compare to prior EKG: Old EKG unavailable Computer interpretation: Agree with computer - Labs Labs: Laboratory Tests 05/04/22 05/04/22 05/04/22 12:56 12:56 12:56 WBC 4.2 L RBC 5.21 Hgb 15.9 Hct 46.1 MCV 88.5 MCH 30.5 MCHC 34.5 RDW 12.6 Plt Count 235 MPV 10.6 Neut # (Auto) 2.9 Lymph # (Auto) 1.1 L [place] # (Auto) 0.2 Eos # (Auto) 0.0 Baso # (Auto) 0.0 Absolute Nucleated RBC 0.00 Nucleated RBC % 0.0 Sodium 136 Potassium 3.6 Chloride 103 Carbon Dioxide 19 L Anion Gap 14.0 H BUN 18 Creatinine 0.8 Estimated GFR (MDRD) 69 L Glucose 163 H Calcium 10.1 Total Bilirubin 2.0 H AST 20 ALT 18 Alkaline Phosphatase 67 Troponin I High Sens B-Natriuretic Peptide 18 Total Protein 7.8 Albumin 4.5 Globulin 3.3 Albumin/Globulin Ratio 1.4 Lipase 55 H TSH Urine Color Urine Clarity Urine pH Ur Specific [place] Urine Protein Urine Glucose (UA) Urine Ketones Urine Occult Blood Urine Nitrite Urine Bilirubin Urine Urobilinogen Ur Leukocyte Esterase Ur Microscopic Review Urine Culture Comments Nasal Adenovirus (PCR) Nasal B. parapertussis DNA (PCR) Nasal Coronavir 229E PCR Nasal Coronavir HKU1 PCR Nasal Coronavir NL63 PCR Nasal Coronavir OC43 PCR Nasal Enterovir/Rhinovir PCR Nasal Influenza B PCR Nasal Influenza A PCR Nasal Parainfluen 1 PCR Nasal Parainfluen 2 PCR Nasal Parainfluen 3 PCR Nasal Parainfluen 4 PCR Nasal RSV (PCR) Nasal B.pertussis DNA PCR Nasal C.pneumoniae (PCR) Oren Human Metapneumo PCR Nasal M.pneumoniae (PCR) Nasal SARS-CoV-2 (PCR) 05/04/22 05/04/22 05/04/22 12:56 12:56 13:19 WBC RBC Hgb Hct MCV MCH MCHC RDW Plt Count MPV Neut # (Auto) Lymph # (Auto) [place] # (Auto) Eos # (Auto) Baso # (Auto) Absolute Nucleated RBC Nucleated RBC % Sodium Potassium Chloride Carbon Dioxide Anion Gap BUN Creatinine Estimated GFR (MDRD) Glucose Calcium Total Bilirubin AST ALT Alkaline Phosphatase Troponin I High Sens 4.3 B-Natriuretic Peptide Total Protein Albumin Globulin Albumin/Globulin Ratio Lipase TSH 1.43 Urine Color YELLOW Urine Clarity CLEAR Urine pH 7.5 Ur Specific [place] 1.010 Urine Protein NEGATIVE Urine Glucose (UA) NEGATIVE Urine Ketones TRACE Urine Occult Blood NEGATIVE Urine Nitrite NEGATIVE Urine Bilirubin NEGATIVE Urine Urobilinogen 0.2 (NORMAL) Ur Leukocyte Esterase NEGATIVE Ur Microscopic Review NOT INDICATED Urine Culture Comments NOT INDICATED Nasal Adenovirus (PCR) Nasal B. parapertussis DNA (PCR) Nasal Coronavir 229E PCR Nasal Coronavir HKU1 PCR Nasal Coronavir NL63 PCR Nasal Coronavir OC43 PCR Nasal Enterovir/Rhinovir PCR Nasal Influenza B PCR Nasal Influenza A PCR Nasal Parainfluen 1 PCR Nasal Parainfluen 2 PCR Nasal Parainfluen 3 PCR Nasal Parainfluen 4 PCR Nasal RSV (PCR) Nasal B.pertussis DNA PCR Nasal C.pneumoniae (PCR) Oren Human Metapneumo PCR Nasal M.pneumoniae (PCR) Nasal SARS-CoV-2 (PCR) 05/04/22 13:19 WBC RBC Hgb Hct MCV MCH MCHC RDW Plt Count MPV Neut # (Auto) Lymph # (Auto) [place] # (Auto) Eos # (Auto) Baso # (Auto) Absolute Nucleated RBC Nucleated RBC % Sodium Potassium Chloride Carbon Dioxide Anion Gap BUN Creatinine Estimated GFR (MDRD) Glucose Calcium Total Bilirubin AST ALT Alkaline Phosphatase Troponin I High Sens B-Natriuretic Peptide Total Protein Albumin Globulin Albumin/Globulin Ratio Lipase TSH Urine Color Urine Clarity Urine pH Ur Specific [place] Urine Protein Urine Glucose (UA) Urine Ketones Urine Occult Blood Urine Nitrite Urine Bilirubin Urine Urobilinogen Ur Leukocyte Esterase Ur Microscopic Review Urine Culture Comments Nasal Adenovirus (PCR) NOT DETECTED Nasal B. parapertussis DNA (PCR) NOT DETECTED Nasal Coronavir 229E PCR NOT DETECTED Nasal Coronavir HKU1 PCR NOT DETECTED Nasal Coronavir NL63 PCR NOT DETECTED Nasal Coronavir OC43 PCR NOT DETECTED Nasal Enterovir/Rhinovir PCR NOT DETECTED Nasal Influenza B PCR NOT DETECTED Nasal Influenza A PCR NOT DETECTED Nasal Parainfluen 1 PCR NOT DETECTED Nasal Parainfluen 2 PCR NOT DETECTED Nasal Parainfluen 3 PCR NOT DETECTED Nasal Parainfluen 4 PCR NOT DETECTED Nasal RSV (PCR) NOT DETECTED Nasal B.pertussis DNA PCR NOT DETECTED Nasal C.pneumoniae (PCR) NOT DETECTED Oren Human Metapneumo PCR NOT DETECTED Nasal M.pneumoniae (PCR) NOT DETECTED Nasal SARS-CoV-2 (PCR) NOT DETECTED - Rads (name of study) cxr Radiology: Final report received (Mild edema versus atypical pneumonia) CTA head Radiology: Final report received (Volume loss and small vessel ischemic disease. No acute intracranial abnormality. No acute process involving the arterial tree of the head) CT neck Radiology: Final report received (No acute process involving the arterial tree of the head and neck.) PD Medical Decision Making - ED course Complexity details: reviewed results, re-evaluated patient, considered differential, d/w patient ED course: 81-year-old female presents to the emergency department for evaluation of generalized weakness, dizziness, myalgias, headache and feeling generally unwell. Initial history was difficult to obtain as the patient just kept saying she did not feel well. I did obtain a CBC that showed no worrisome leukocytosis. Her electrolytes show mildly elevated blood sugar of 163. Her CO2 was 19. She does have a bilirubin of 2. However there is no abnormal LFTs otherwise. Urinalysis showed no signs of infection. Viral PCR panel was negative. Her EKG was nonischemic and sinus rhythm. High-sensitivity troponin was negative. BNP was not elevated. Cardiopulmonary auscultation was unremarkable without anything to suggest heart failure. A chest x-ray suggested early edema versus atypical pneumonia. My suspicion is however that she does not have a pneumonia. She has no cough, no white count and no fever. I also clinically do not believe that she has volume overload or edema given the normal oxygenation, normal BNP and lack of peripheral edema. Because the patient had reported persistent dizziness we did obtain a CT angio of the head and neck to evaluate for critical stenosis or lesions. No worrisome findings were seen. In the emergency department I administer her some IV fluids and Tylenol. On reevaluation her symptoms appear markedly better. I discussed the laboratory findings as well as x-ray and CT imaging with the patient and her daughter. At this time there is no acute finding that warrants hospitalization. It is likely that she does have a viral illness causing the constellation of symptoms. She does want to be discharged home. We discussed the usual worrisome emergent return precautions. Departure - Departure Disposition: 01 Home, Self Care Clinical Impression: Generalized weakness, Dizziness Condition: Stable Record reviewed to determine appropriate education?: Yes Comments: You came to the emergency department today because this morning he woke up with generalized weakness body aches and feeling very dizzy. Here in the emergency department we did give you some IV fluids as well as a single dose of Tylenol and your symptoms have gotten better. We Did obtain CBC, electrolytes viral panel and urine. There are no worrisome findings on these labs today. The CTs of your head showed no signs of a stroke There is nothing on your labs or exam to suggest heart attack, heart failure. As we discussed I do not believe that you have a pneumonia. The viral panel was negative. At this time the cause of your symptoms is not clear though it could still be a general viral illness that causes flulike symptoms. I encourage you to go home and drink plenty of fluids and take your usual [id number] medications. If you find that your symptoms are worsening, you develop fevers, develop any cough, have uncontrolled vomiting, develop belly pain then we do need to see you again. In general viral illnesses will begin to resolve after 3 to 5 days.
[2022-05-04 13:08] LABS: BASOPHILS % (AUTO) 0.5 %; HCT - HEMATOCRIT 46.1 % (37.0-47.0); HGB - HEMOGLOBIN 15.9 g/dL (12.0-16.0); LYMPHOCYTES # (AUTO) 1.1 10^3/uL (1.5-3.5); LYMPHOCYTES % (AUTO) 25.3 %; MEAN CORPUSCULAR HEMOGLOBIN 30.5 pg (27.0-31.0); MEAN CORPUSCULAR HGB CONC 34.5 g/dL (32.0-36.0); MEAN CORPUSCULAR VOLUME 88.5 fL (81.0-99.0); MEAN PLATELET VOLUME 10.6 fL (7.9-10.8); MONOCYTES # (AUTO) 0.2 10^3/uL (0.0-1.0); MONOCYTES % (AUTO) 4.5 %; NEUTROPHILS # (AUTO) 2.9 10^3/uL (1.5-6.6); NEUTROPHILS % (AUTO) 69.5 %; PLT - PLATELET COUNT 235 10^3/uL (130-450); RED BLOOD COUNT 5.21 10^6/uL (4.20-5.40); RED CELL DISTRIBUTION WIDTH 12.6 % (12.0-15.0); WHITE BLOOD COUNT 4.2 x10^3/uL (4.8-10.8)
[2022-05-04 13:26] LABS: ALBUMIN 4.5 g/dL (3.2-5.5); ALBUMIN/GLOBULIN RATIO 1.4 (1.0-2.2); CALCIUM 10.1 mg/dL (8.5-10.3); CREATININE 0.8 mg/dL (0.4-1.0); POTASSIUM 3.6 mmol/L (3.5-5.0); TOTAL PROTEIN 7.8 g/dL (6.7-8.2)
[2022-05-04 13:31] LABS: BILIRUBIN,URINE NEGATIVE (NEGATIVE); GLUCOSE, URINE (UA) NEGATIVE (NEGATIVE); KETONES,URINE (UA) TRACE mg/dL (NEGATIVE); LEUKOCYTE ESTERASE, URINE NEGATIVE (NEGATIVE); NITRITE,URINE NEGATIVE (NEGATIVE); OCCULT BLOOD,URINE NEGATIVE (NEGATIVE); PH,URINE 7.5 PH (5.0-7.5); PROTEIN,URINE NEGATIVE (NEGATIVE); UROBILINOGEN,URINE 0.2 (NORMAL) E.U./dL (NORMAL)
[2022-05-04 13:37] LABS: CLARITY,URINE CLEAR (CLEAR)
[2022-05-04] MEDS ORDERED: iohexoL-300 100 ML VIAL ONE (13:45)
--- NOTE | 2022-05-04 13:51 | XRAY Report ---
PROCEDURE: Chest 1 View X-Ray INDICATIONS: Chest Pain TECHNIQUE: One view of the chest was acquired. COMPARISON: Plain films dated 07/25/2018 FINDINGS: Surgical changes and devices: None. Lungs and pleura: No pleural effusions or pneumothorax. There is mild basilar predominant reticulono dular pulmonary opacity. Mediastinum: Mediastinal contours appear normal. Heart size is normal. Bones and chest wall: No suspicious bony lesions. Overlying soft tissues appear unremarkable. IMPRESSION: Mild edema versus atypical pneumonia. Reviewed by: Millicent Trotter MD on 05/04/2022 1:50 PM PST Approved by: Millicent Trotter MD on 05/04/2022 1:50 PM [facility] Station ID: [id number]
[2022-05-04] MEDS ORDERED: SODIUM CHLORIDE 0.9% 1,000 ML IV STA (13:52)
[2022-05-04] MEDS ORDERED: ACETAMINOPHEN 325 MG TABLET PO STA (13:53)
[2022-05-04 14:31] LABS: B. PARAPERTUSSIS- RESP PCR PAN NOT DETECTED; B. PERTUSSIS- RESP PCR PANEL NOT DETECTED; C. PNEUMONIAE- RESP PCR PANEL NOT DETECTED; CORONAVIRUS 229E-RESP PCR NOT DETECTED; CORONAVIRUS HKU1-RESP PCR NOT DETECTED; CORONAVIRUS NL63-RESP PCR NOT DETECTED; CORONAVIRUS OC43-RESP PCR NOT DETECTED; HUMAN METAPNEUMOVIRUS NOT DETECTED; INFLUENZA A- RESP PCR PANEL NOT DETECTED; INFLUENZA B - RESP PCR PANEL NOT DETECTED; M. PNEUMONIAE- RESP PCR PANEL NOT DETECTED; PARAINFLUENZA VIRUS 1 NOT DETECTED; PARAINFLUENZA VIRUS 2 NOT DETECTED; PARAINFLUENZA VIRUS 3 NOT DETECTED; PARAINFLUENZA VIRUS 4 NOT DETECTED; RHINOVIRUS/ENTEROVIRUS NOT DETECTED; RSV- RESP PCR PANEL NOT DETECTED; SARS-CoV-2 -RESP PCR PANEL NOT DETECTED
--- NOTE | 2022-05-04 14:59 | CT Report ---
PROCEDURE: ANGIO NECK W INDICATIONS: dizzy CONTRAST: 80ml Omnipaque 300 TECHNIQUE: After the administration of intravenous contrast, 1.5 mm axial sections acquired from the aortic arch to the [place]. Coronal 3-D maximum intensity projection (MIP) and/or volume rendering ref ormats were then performed. For radiation dose reduction, the following was used: automated exposur e control, adjustment of mA and/or kV according to patient size. COMPARISON: None. FINDINGS: Image quality: Excellent. Carotid system: The great vessels demonstrate a conventional anatomy as they arise from the aortic a rch. The origins of the common carotid arteries appear patent. The common carotid arteries demonstr ate normal calibers and courses. The bifurcation regions appear normal bilaterally. The internal ca rotid arteries demonstrate normal caliber and course. Posterior circulation: The origins of the vertebral arteries appear patent. The more superior porti ons of the vertebral arteries demonstrate normal course and caliber. They join to form a normal appe aring basilar artery. Soft tissues: Visualized neck soft tissues demonstrate no suspicious abnormalities. The thyroid is normal in size and there are no incidental findings. Bones: No suspicious bony lesions. Visualized cervical spine appears normally aligned. IMPRESSION: No acute process involving the arterial tree of the head and neck. The estimate of stenosis included in the report of the imaging study was calculated using the NASCET method Reviewed by: Millicent Trotter MD on 05/04/2022 2:58 PM PST Approved by: Millicent Trotter MD on 05/04/2022 2:58 PM PST Station ID: [id number]
--- NOTE | 2022-05-04 15:01 | CT Report ---
PROCEDURE: ANGIO HEAD W/WO INDICATIONS: dizzy CONTRAST: 80ml Omnipaque 300 TECHNIQUE: Precontrast 4.5 mm thick angled axial sections acquired from the foramen magnum to the vertex. Afte r the administration of intravenous contrast, 1 mm thick sections acquired through the [place] of [place] is. Postcontrast 4.5 mm thick sections then re-acquired from the foramen magnum to the vertex. 3-di mensional mddhdyy-gskfofmsp-gcehxkdofy (MIP) and/or volume rendering reformats were acquired of the c entral intracranial vasculature. For radiation dose reduction, the following was used: automated ex posure control, adjustment of mA and/or kV according to patient size. COMPARISON: Head CT dated 06/23/2015 FINDINGS: Image quality: Excellent. Anterior circulation: Intracranial internal carotid arteries are normal in size and flow. The flow within the paired anterior cerebral arteries is normal and symmetric. The flow within the middle cer ebral arteries is normal and symmetric. The anterior communicating artery is seen. No aneurysms are seen. Posterior circulation: Visualized portions of the vertebral arteries demonstrate normal caliber, and join to form a normal appearing basilar artery. Flow within the posterior cerebral arteries is norm al and symmetric. No aneurysms are seen. CSF spaces: Ventricles are normal in size and shape. Basal cisterns are patent. No extra-axial flu id collections. Brain: No midline shift. No intracranial bleeds or masses. Mild diffuse cerebral volume loss. Mild degree of patchy low density within the periventricular and subcortical white matter. Hamilton-white mat ter interface appears intact. Skull and face: Calvarium and facial bones appear intact, without suspicious lesions. Sinuses: Visualized sinuses and mastoids are clear. IMPRESSION: 1. Volume loss and small vessel ischemic disease. 2. No acute intracanal normality. 3. No acute process involving the arterial tree of the head. Reviewed by: Millicent Trotter MD on 05/04/2022 2:59 PM PST Approved by: Millicent Trotter MD on 05/04/2022 2:59 PM PST Station ID: [id number]
[2022-05-04] MEDS ORDERED: iohexoL-300 100 ML VIAL IVP ONE (16:45)
[2022-05-04 17:07] VITALS: BP 189/103
== END 2022-05-04 17:06 | disposition home or self-care (01) ==
LOC: EDUNIT# → ED 12:38 → SUPCPDRO 12:38 → ED 17:06
DX: R42 Dizziness and giddiness (principal); R53.1 Weakness; Z20.822 Contact with and (suspected) exposure to COVID-19
CPT/HCPCS: 36415; 70496; 70498; 71045; 80053; 81003; 83690; 83880; 84443; 84484; 85025; 87633; 93005; 99284; A9270; Q9967; 81001; 87086

== ENCOUNTER 2022-07-24 07:00 | Outpatient (CLI) | payer MEDICARE, OTHER | END 2022-07-24 23:59 | disposition home or self-care (01) | LOC: LAB.S 07:00 | PROVIDERS: ATTEND Physician Assistant Medical | DX: N39.0 Urinary tract infection, site not specified (principal) | CPT/HCPCS: 87086; 87181 ==

== ENCOUNTER 2022-12-25 10:35 | Outpatient (CLI) | payer MEDICARE, OTHER ==
[2022-12-25 14:56] LABS: BASOPHILS % (AUTO) 0.3 %; EOSINOPHILS % (AUTO) 0.5 %; HGB - HEMOGLOBIN 13.9 g/dL (12.0-16.0); LYMPHOCYTES # (AUTO) 1.6 10^3/uL (1.5-3.5); MEAN CORPUSCULAR HEMOGLOBIN 30.6 pg (27.0-31.0); MEAN CORPUSCULAR HGB CONC 33.1 g/dL (32.0-36.0); MEAN CORPUSCULAR VOLUME 92.5 fL (81.0-99.0); MEAN PLATELET VOLUME 11.1 fL (7.9-10.8); MONOCYTES # (AUTO) 0.3 10^3/uL (0.0-1.0); MONOCYTES % (AUTO) 6.8 %; NEUTROPHILS # (AUTO) 1.8 10^3/uL (1.5-6.6); NEUTROPHILS % (AUTO) 48.4 %; PLT - PLATELET COUNT 220 10^3/uL (130-450); RED BLOOD COUNT 4.54 10^6/uL (4.20-5.40); RED CELL DISTRIBUTION WIDTH 14.5 % (12.0-15.0); WHITE BLOOD COUNT 3.7 x10^3/uL (4.8-10.8)
[2022-12-25 15:36] LABS: ALBUMIN 4.2 g/dL (3.2-5.5); ALBUMIN/GLOBULIN RATIO 1.6 (1.0-2.2); ALKALINE PHOSPHATASE 72 IU/L (42-121); ALT ALANINE AMINOTRANSFERASE 13 IU/L (10-60); AST ASPARTATE AMINOTRANSFERASE 15 IU/L (10-42); BILIRUBIN,TOTAL 1.4 mg/dL (0.2-1.0); BUN - BLOOD UREA NITROGEN 21 mg/dL (6-20); CALCIUM 9.6 mg/dL (8.5-10.3); CARBON DIOXIDE - CO2 29 mmol/L (21-32); CHLORIDE 107 mmol/L (101-111); CHOL/HDL RATIO 3.4 (<4.4); CHOLESTEROL 199 mg/dL; CREATININE 0.8 mg/dL (0.6-1.3); GFR - MDRD 69 (>89); GLUCOSE 128 mg/dL (74-104); HDL CHOLESTEROL 59 mg/dL; LDL CHOLESTEROL,CALCULATED 109 mg/dL; LDL/HDL RATIO 1.8 (<4.4); POTASSIUM 4.2 mmol/L (3.5-4.5); SODIUM 140 mmol/L (135-145); TOTAL PROTEIN 6.8 g/dL (6.4-8.9); TRIGLYCERIDES 153 mg/dL (48-352); VLDL CHOLESTEROL 31 mg/dL
[2022-12-25 15:49] LABS: THYROID STIMULATING HORMONE 1.59 uIU/mL (0.34-5.60)
[2022-12-25 20:51] LABS: ESTIMATED AVERAGE GLUCOSE 123 mg/dL (70-100); HEMOGLOBIN A1c% 5.9 % (4.27-6.07)
== END 2022-12-25 10:36 | disposition home or self-care (01) ==
LOC: LAB.S 10:35
PROVIDERS: ATTEND Registered Nurse
DX: E11.9 Type 2 diabetes mellitus without complications (principal); N39.0 Urinary tract infection, site not specified; Z13.228 Encounter for screening for other metabolic disorders; Z13.220 Encounter for screening for lipoid disorders; Z13.29 Encounter for screening for other suspected endocrine disorder; Z13.0 Encounter for screening for diseases of the blood and blood-forming organs and certain disorders involving the immune mechanism
CPT/HCPCS: 36415; 80053; 80061; 83036; 83721; 84443; 85025

== ENCOUNTER 2022-12-26 08:00 | Outpatient (CLI) | payer MEDICARE, OTHER ==
[2022-12-26 16:17] LABS: CREATININE,URINE 94.3 mg/dL
[2022-12-26 16:18] LABS: MICROALBUMIN,URINE < 0.7 mg/dL
== END 2022-12-26 23:59 | disposition home or self-care (01) ==
LOC: LAB.R 08:00
PROVIDERS: ATTEND Registered Nurse
DX: E11.9 Type 2 diabetes mellitus without complications (principal); N39.0 Urinary tract infection, site not specified
CPT/HCPCS: 82043; 82570

== ENCOUNTER 2023-01-03 15:35 | Outpatient (CLI) | payer MEDICARE, OTHER ==
--- NOTE | 2023-01-04 12:47 | XRAY Report ---
PROCEDURE: Foot 3 View LT INDICATIONS: LT FOOT PAIN TECHNIQUE: 3 views of the foot were acquired. COMPARISON: None. FINDINGS: Bones: No acute fracture or dislocation identified. Polyarticular degenerative changes of the foot a re present, for example at the TMT joints, MTP joints, and scattered IP joints. A plantar calcaneal s pur is present. Soft tissues: No suspicious soft tissue calcifications. IMPRESSION: No acute bony abnormality. If pain persists with conservative management, consider repeat radiographs in 10-14 days or cross-sectional imaging. Polyarticular degenerative changes of the foot. Calcaneal enthesopathy. Reviewed by: Ronak Frost MD on 01/04/2023 12:46 PM PDT Approved by: Ronak Frost MD on 01/04/2023 12:46 PM PDT Station ID: [id number]
== END 2023-01-03 15:36 | disposition home or self-care (01) ==
LOC: DI 15:35
PROVIDERS: ATTEND Podiatrist
DX: M19.072 Primary osteoarthritis, left ankle and foot (principal); M77.32 Calcaneal spur, left foot

== ENCOUNTER 2023-06-15 07:00 | Outpatient (CLI) | payer MEDICARE, OTHER ==
--- NOTE | 2023-06-16 09:34 | XRAY Report ---
PROCEDURE: Finger(s) RT INDICATIONS: OSTEOARTHRITIS, THUMB TECHNIQUE: AP hand, 2 views of the right first finger(s) acquired. COMPARISON: None. FINDINGS: Bones: Severe degenerative changes are present at the first interphalangeal joint including joint sp pola narrowing, subchondral cystic change, and osteophytosis. There is a displaced volar plate fractur e at the base of the distal right first phalanx. 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 Soft tissues: No suspicious soft tissue calcifications or masses. IMPRESSION: Severe osteoarthritis and findings suspicious for nonunified fracture at the first right interphalang eal joint. Reviewed by: Pastora Sr MD on 06/16/2023 9:32 AM PDT Approved by: Pastora Sr MD on 06/16/2023 9:32 AM PDT Station ID: [id number]
--- NOTE | 2023-06-16 09:35 | XRAY Report ---
PROCEDURE: Hip w/Pelvis 2-3V RT INDICATIONS: OSTEOARTHRITIS, RIGHT HIP TECHNIQUE: 2 views of the hip were acquired. COMPARISON: 2 views of the right hip dated 09/03/2018 FINDINGS: Bones: No acute fracture or dislocation. Severe right hip joint space narrowing is redemonstrated an d appears similar in extent to the study dated 09/03/2018. As before, there are large collar osteophyt es. Soft tissues: No suspicious soft tissue calcifications or masses. IMPRESSION: Severe right hip osteoarthritis similar in extent to 2019. Reviewed by: Pastora Sr MD on 06/16/2023 9:33 AM PDT Approved by: Pastora Sr MD on 06/16/2023 9:33 AM PDT Station ID: [id number]
== END 2023-06-15 23:59 | disposition home or self-care (01) ==
LOC: DI.S 07:00
PROVIDERS: ATTEND Emergency Medicine
DX: M18.11 Unilateral primary osteoarthritis of first carpometacarpal joint, right hand (principal); R93.6 Abnormal findings on diagnostic imaging of limbs; M16.11 Unilateral primary osteoarthritis, right hip

== ENCOUNTER 2023-10-02 07:00 | Outpatient (CLI) | payer MEDICARE ==
[2023-10-02 20:03] LABS: CREATININE,URINE 64.8 mg/dL; MICROALBUM/CREATININE RATIO,UR 15.4 ug/mg (<30.0)
== END 2023-10-02 23:59 | disposition home or self-care (01) ==
LOC: LAB.S 07:00
PROVIDERS: ATTEND Registered Nurse
DX: E11.9 Type 2 diabetes mellitus without complications (principal)
CPT/HCPCS: 82043; 82570